=== PATIENT | male | born 1945 | race Caucasian/White ===

== ENCOUNTER 2017-11-12 20:43 | Inpatient (IN) | payer OTHER ==
[~2017-11-12] VITALS: Ht 175.3 cm; Wt 72.6 kg
[2017-11-12] MEDS ORDERED: ONDANSETRON ODT 4 MG TAB.RAPDIS SL PRN (21:30)
[2017-11-12] MEDS ORDERED: LORAZEPAM 1 MG TABLET PO PRN (21:30)
[2017-11-12] MEDS ORDERED: LOPERAMIDE HCL 2 MG CAPSULE PO PRN ×2 (21:30)
[2017-11-12] MEDS ORDERED: MAGNESIUM HYDROXIDE 30 ML LIQUID UDC PO PRN (21:30)
[2017-11-12] MEDS ORDERED: diphenhydrAMINE 50 MG CAPSULE PO PRN (21:30)
[2017-11-12] MEDS ORDERED: ONDANSETRON 4 MG/2 ML VIAL IM PRN (21:30)
[2017-11-12] MEDS ORDERED: ACETAMINOPHEN 325 MG TABLET PO PRN (21:30)
[2017-11-12] MEDS ORDERED: THIAMINE HCL 200 MG/2 ML VIAL IM ONE (21:30)
[2017-11-12] MEDS ORDERED: LORAZEPAM 2 MG/1 ML VIAL IM PRN (21:30)
[2017-11-12] MEDS ORDERED: MAG HYDROX/AL HYDROX/SIMETH 30 ML LIQUID UDC PO PRN (21:30)
[2017-11-12] MEDS ORDERED: MIRALAX 17 GM POWD.PACK PO PRN (21:30)
[2017-11-12] MEDS ORDERED: CLONIDINE HCL 0.1 MG TABLET PO PRN (21:30)
[2017-11-12 22:38] LABS: BASOPHILS # (AUTO) 0.1 K/uL (0.0-8.0); BASOPHILS % (AUTO) 1.2 % (0.0-2.0); EOSINOPHILS % (AUTO) 0.7 % (0.0-7.0); HEMATOCRIT 37.6 % (36.7-47.1); HEMOGLOBIN 13.1 g/dL (12.5-16.3); LYMPHOCYTES # (AUTO) 1.2 K/uL (20.0-40.0); LYMPHOCYTES % (AUTO) 20.2 % (20.5-51.5); MEAN CORPUSCULAR HEMOGLOBIN 33.9 uug (23.8-33.4); MEAN CORPUSCULAR HGB CONC 35 g/dL (32.5-36.3); MEAN CORPUSCULAR VOLUME 97.1 fL (73.0-96.2); MONOCYTES # (AUTO) 0.5 K/uL (2.0-10.0); MONOCYTES % (AUTO) 8.5 % (0.0-11.0); NEUTROPHILS % (AUTO) 69.4 % (38.5-71.5); PLATELET COUNT (AUTO) 230 K/uL (152-348); RED BLOOD CELL COUNT(AUTO) 3.87 MIL/uL (4.06-5.63); WHITE BLOOD COUNT (AUTO) 5.7 K/uL (3.6-10.2)
[2017-11-12 22:55] LABS: ALANINE AMINOTRANSFERASE 156 U/L (16-63); ALKALINE PHOSPHATASE 125 U/L (50-136); AMYLASE 45 U/L (25-115); ASPARTATE AMINOTRANSFERASE 164 U/L (15-37); BILIRUBIN,TOTAL 0.8 mg/dL (0.2-1.0); CARBON DIOXIDE 30 mmol/L (21-32); CHLORIDE 92 mmol/L (98-107); CREATININE 0.9 mg/dL (0.6-1.3); GLUCOSE 180 mg/dL (74-106); MAGNESIUM 1.3 mg/dL (1.8-2.4); POTASSIUM 3.6 mmol/L (3.5-5.1); UREA NITROGEN, BLOOD 10 mg/dL (7-18)
[2017-11-12] MEDS ORDERED: LORAZEPAM 1 MG TABLET PO ONE (23:00)
[2017-11-12 23:03] LABS: ETHANOL < 3 MG/DL (0-0)
[2017-11-12] MEDS ORDERED: MAGNESIUM OXIDE 400 MG TABLET PO ONE (23:30)
[2017-11-13] VITALS (7 sets, daily range): BP systolic 104–179; BP diastolic 74–89
[2017-11-13] MEDS ORDERED: ACET-2605 PO (00:52)
[2017-11-13] MEDS ORDERED: DIME50TA26 PO (00:56)
[2017-11-13] MEDS ORDERED: MULT-1201 PO (00:56)
[2017-11-13] MEDS ORDERED: PROP10DR2 OP (00:56)
[2017-11-13] MEDS ORDERED: NAPR-1126 PO (00:56)
[2017-11-13] MEDS ORDERED: BISM262T15 PO (00:56)
[2017-11-13] MEDS: LORAZEPAM 1 MG TABLET PO PRN ×2 (02:26→23:19)
[2017-11-13 03:13] LABS: *AMPHETAMINE, URINE NEGATIVE (NEGATIVE); *BARBITURATE, URINE NEGATIVE (NEGATIVE); *CANNABINOID, URINE NEGATIVE (NEGATIVE); *COCCAINE, URINE NEGATIVE (NEGATIVE); *OPIATE, URINE NEGATIVE (NEGATIVE); *PHENCYCLIDINE SCREEN,URINE NEGATIVE (NEGATIVE)
[2017-11-13] MEDS: THIAMINE HCL 100 MG TABLET PO SCH (08:22)
[2017-11-13] MEDS: LORAZEPAM 1 MG TABLET PO SCH ×3 (08:22→21:20)
[2017-11-13] MEDS: MULTIVITAMINS,THERAPEUTIC TABLET PO SCH (08:22)
[2017-11-13] MEDS: FOLIC ACID 1 MG TABLET PO SCH (08:22)
[2017-11-13] MEDS: hydrALAZINE HCL 50 MG TABLET PO PRN ×2 (08:22→17:29)
[2017-11-13] MEDS ORDERED: TUBERCULIN,PURIF.PROT.DERIV. 5 TU/0.1 ML TEST ID ONE (09:00)
[2017-11-13] MEDS ORDERED: LORAZEPAM 1 MG TABLET PO ONE (11:30)
[2017-11-13] MEDS ORDERED: PROPRANOLOL HCL 20 MG TABLET PO ONE ×2 (12:45→15:00)
[2017-11-13] MEDS ORDERED: hydrALAZINE HCL 50 MG TABLET PO ONE (12:45)
[2017-11-13] MEDS ORDERED: LABETALOL HCL 100 MG TABLET PO ONE (19:00)
[2017-11-13] MEDS: PROPRANOLOL HCL 20 MG TABLET PO SCH (21:20)
[2017-11-14 00:01] VITALS: BP 126/68
[2017-11-14 04:00] VITALS: BP 130/72
[2017-11-14 07:47] LABS: BILIRUBIN,DIRECT 0.2 mg/dL (0.0-0.2); BILIRUBIN,TOTAL 0.7 mg/dL (0.2-1.0); CREATININE 0.7 mg/dL (0.6-1.3); MAGNESIUM 1.9 mg/dL (1.8-2.4); PHOSPHOROUS 4.3 mg/dL (2.5-4.9); POTASSIUM 3.7 mmol/L (3.5-5.1); TOTAL PROTEIN, SERUM 6.8 g/dL (6.4-8.2)
[2017-11-14 08:06] LABS: HEPATITIS B SURFACE AG Negative (Negative)
[2017-11-14 08:18] VITALS: BP 138/88
[2017-11-14] MEDS: PROPRANOLOL HCL 20 MG TABLET PO SCH ×2 (08:59→20:22)
[2017-11-14] MEDS: LORAZEPAM 1 MG TABLET PO SCH ×3 (08:59→20:22)
[2017-11-14] MEDS: FOLIC ACID 1 MG TABLET PO SCH (08:59)
[2017-11-14] MEDS: THIAMINE HCL 100 MG TABLET PO SCH (08:59)
[2017-11-14] MEDS: MULTIVITAMINS,THERAPEUTIC TABLET PO SCH (08:59)
[2017-11-14 12:15] VITALS: BP 146/96
[2017-11-14] MEDS ORDERED: LORAZEPAM 1 MG TABLET PO PRN ×2 (13:45)
[2017-11-14 16:30] VITALS: BP 142/83
[2017-11-14 20:00] VITALS: BP 167/84
[2017-11-15] VITALS (8 sets, daily range): BP systolic 107–170; BP diastolic 58–97
[2017-11-15] MEDS: THIAMINE HCL 100 MG TABLET PO SCH (08:20)
[2017-11-15] MEDS: PROPRANOLOL HCL 20 MG TABLET PO SCH ×2 (08:20→20:21)
[2017-11-15] MEDS: LORAZEPAM 1 MG TABLET PO SCH ×2 (08:20→20:20)
[2017-11-15] MEDS: MULTIVITAMINS,THERAPEUTIC TABLET PO SCH (08:20)
[2017-11-15] MEDS: FOLIC ACID 1 MG TABLET PO SCH (08:21)
[2017-11-15] MEDS: hydrALAZINE HCL 50 MG TABLET PO PRN (12:50)
[2017-11-15] MEDS: AMLODIPINE 5 MG TABLET PO SCH (15:33)
[2017-11-15] MEDS: IBUPROFEN 400 MG TABLET PO PRN (20:20)
[2017-11-16] VITALS: BP 132/84
[2017-11-16 08:44] VITALS: BP 126/63
[2017-11-16] MEDS: FOLIC ACID 1 MG TABLET PO SCH (08:46)
[2017-11-16] MEDS: AMLODIPINE 5 MG TABLET PO SCH (08:46)
[2017-11-16] MEDS: THIAMINE HCL 100 MG TABLET PO SCH (08:46)
[2017-11-16] MEDS: MULTIVITAMINS,THERAPEUTIC TABLET PO SCH (08:46)
[2017-11-16] MEDS: PROPRANOLOL HCL 20 MG TABLET PO SCH ×2 (08:46→20:08)
[2017-11-16] MEDS ORDERED: LORAZEPAM 1 MG TABLET PO SCH (09:00)
[2017-11-16 12:04] VITALS: BP 161/98
[2017-11-16] MEDS: hydrALAZINE HCL 50 MG TABLET PO PRN (14:30)
[2017-11-16 15:30] VITALS: BP 152/86
[2017-11-16 16:24] VITALS: BP 144/82
[2017-11-16 20:00] VITALS: BP 148/70
[2017-11-16] MEDS ORDERED: AMLODIPINE 5 MG TABLET PO SCH (21:00)
[2017-11-17 08:01] VITALS: BP 144/83
[2017-11-17] MEDS: PROPRANOLOL HCL 20 MG TABLET PO SCH ×2 (09:40→20:21)
[2017-11-17] MEDS: AMLODIPINE 10 MG TABLET PO SCH (09:40)
[2017-11-17] MEDS: IBUPROFEN 400 MG TABLET PO PRN ×2 (09:40→20:22)
[2017-11-17] MEDS: FOLIC ACID 1 MG TABLET PO SCH (09:41)
[2017-11-17] MEDS: THIAMINE HCL 100 MG TABLET PO SCH (09:41)
[2017-11-17] MEDS: MULTIVITAMINS,THERAPEUTIC TABLET PO SCH (09:41)
[2017-11-17] MEDS ORDERED: IBUP-1953 PO (11:36)
[2017-11-17] MEDS ORDERED: AMLO10TA2 PO (11:36)
[2017-11-17] MEDS ORDERED: PROP20TA19 PO (11:36)
[2017-11-17] MEDS ORDERED: TRAZ-144 PO (11:36)
[2017-11-17 12:08] VITALS: BP 146/79
[2017-11-17 16:00] VITALS: BP 135/77
[2017-11-17 20:00] VITALS: BP 127/76
[2017-11-17] MEDS: TRAZODONE 50 MG TABLET PO PRN (21:19)
[2017-11-18 04:00] VITALS: BP 138/76
[2017-11-18 08:00] VITALS: BP 115/58
[2017-11-18] MEDS: FOLIC ACID 1 MG TABLET PO SCH (08:13)
[2017-11-18] MEDS: THIAMINE HCL 100 MG TABLET PO SCH (08:13)
[2017-11-18] MEDS: IBUPROFEN 400 MG TABLET PO PRN (08:13)
[2017-11-18] MEDS: AMLODIPINE 10 MG TABLET PO SCH (08:13)
[2017-11-18] MEDS: PROPRANOLOL HCL 20 MG TABLET PO SCH ×2 (09:15→20:04)
[2017-11-18] MEDS: MULTIVITAMINS,THERAPEUTIC TABLET PO SCH (09:15)
[2017-11-18 12:00] VITALS: BP 123/67
[2017-11-18 16:00] VITALS: BP 136/74
[2017-11-18 20:00] VITALS: BP 134/77
[2017-11-18] MEDS: TRAZODONE 50 MG TABLET PO PRN (20:12)
[2017-11-19 08:00] VITALS: BP 121/71
[2017-11-19] MEDS: FOLIC ACID 1 MG TABLET PO SCH (08:19)
[2017-11-19] MEDS: AMLODIPINE 10 MG TABLET PO SCH (08:19)
[2017-11-19] MEDS: MULTIVITAMINS,THERAPEUTIC TABLET PO SCH (08:19)
[2017-11-19] MEDS: THIAMINE HCL 100 MG TABLET PO SCH (08:19)
[2017-11-19 08:20] VITALS: BP 121/71
[2017-11-19] MEDS: PROPRANOLOL HCL 20 MG TABLET PO SCH (08:20)
== END 2017-11-19 09:30 | disposition other institution (70) | DRG 895 ==
LOC: SRC 20:43
PROVIDERS: ADMIT Internal Medicine; ATTEND Internal Medicine
PROC: HZ2ZZZZ Detoxification Services for Substance Abuse Treatment (ICD-10-PCS; principal; 2017-11-12)
PROC: HZ51ZZZ Individual Psychotherapy for Substance Abuse Treatment, Behavioral (ICD-10-PCS; 2017-11-14)
DX: F10.230 Alcohol dependence with withdrawal, uncomplicated (principal); K70.9 Alcoholic liver disease, unspecified; I15.9 Secondary hypertension, unspecified; E83.42 Hypomagnesemia; E87.1 Hypo-osmolality and hyponatremia; G25.0 Essential tremor; Y90.0 Blood alcohol level of less than 20 mg/100 ml; Z81.1 Family history of alcohol abuse and dependence; E86.1 Hypovolemia; R26.81 Unsteadiness on feet; R73.9 Hyperglycemia, unspecified; F43.21 Adjustment disorder with depressed mood
CPT/HCPCS: 36415; 80307; 82746; 83735; 84100; 85025; 86592; 86705; 86803; 87340; 87806; A4663; G0480; J3411; Q0162; Q0163